=== PATIENT | female | born 2000 | race Caucasian/White ===

== ENCOUNTER 2024-09-07 18:46 | Emergency (ER) | payer OTHER ==
[~2024-09-07] VITALS: Ht 172.7 cm; Wt 73.0 kg
[2024-09-07] MEDS ORDERED: LIDOCAINE/RACEPINEP/TETRACAINE 3 ML SYR TOP ONE (20:30)
[2024-09-07] MEDS ORDERED: AMOX TR-K CLV1 EAC1 PO (21:57)
[2024-09-07] MEDS ORDERED: AMOXICILLIN/CLAVULANATE K 875 MG HOME.PACK PO ONE (22:00)
[2024-09-07 22:30] VITALS: BP 122/84
== END 2024-09-07 22:30 | disposition home or self-care (01) ==
LOC: ED 18:46
DX: S81.051A Open bite, right knee, initial encounter (principal); W54.0XXA Bitten by dog, initial encounter
CPT/HCPCS: 12002; 99283